=== PATIENT | female | born 1975 | race Native Hawaiian/Other Pacific Islander ===

== ENCOUNTER → 2016-06-11 | Outpatient (CLI) | payer BC | END | disposition home or self-care (01) | LOC: C.LABSPEC 17:36 | PROVIDERS: ATTEND Nurse Practitioner Family | DX: R35.0 Frequency of micturition (principal) ==

== ENCOUNTER → 2016-07-16 | Outpatient (CLI) | payer BC ==
[2016-07-20 11:57] LABS: CHLAMYDIA TRACH RNA*** NOT DETECTED (NOT DETECTED); GC (NEIS GONORRHOEAE)RNA** NOT DETECTED (NOT DETECTED)
== END | disposition home or self-care (01) ==
LOC: C.LABSPEC 16:29
PROVIDERS: ATTEND Obstetrics & Gynecology
DX: Z11.3 Encounter for screening for infections with a predominantly sexual mode of transmission (principal)

== ENCOUNTER → 2016-07-16 | Outpatient (CLI) | payer BC | END | disposition home or self-care (01) | LOC: C.PAPS 08:14 | PROVIDERS: ATTEND Obstetrics & Gynecology | DX: Z01.411 Encounter for gynecological examination (general) (routine) with abnormal findings (principal); R87.610 Atypical squamous cells of undetermined significance on cytologic smear of cervix (ASC-US) ==

== ENCOUNTER 2016-08-01 19:53 | Emergency (ER) | payer BC ==
[~2016-08-01] VITALS: Ht 167.6 cm; Wt 79.3 kg
[2016-08-01 19:55] VITALS: Ht 167.6 cm; Wt 79.3 kg
[2016-08-01] MEDS ORDERED: KETOROLAC TROMETHAMINE 30 MG/ML VIAL IV STA (20:07)
[2016-08-01] MEDS ORDERED: SODIUM CHLORIDE 0.9% 1000ML 1,000 ML IV STA (20:07)
[2016-08-01 20:35] LABS: BASO % 0.3 %; BASO ABS # 0.02 K/uL (0-0.2); COMPLETE YES; EOS % 0.4 %; HEMATOCRIT 38.5 % (37-47); LYMPH % 40.1 %; LYMPH ABS # 2.74 K/uL (1.2-3.4); MEAN CELL VOLUME 92.1 fL (80-100); MEAN CORPUSCULAR HEMOGLOBIN 30.9 pg (25-34); MEAN CORPUSCULAR HGB CONC 33.5 g/dl (32-36); NEUT % 53.2 %; PLATELET COUNT 193 K/uL (130-400); RED BLOOD COUNT 4.18 M/uL (4.2-5.4); WHITE BLOOD COUNT 6.83 K/uL (4.8-10.8)
[2016-08-01 20:50] LABS: BUN/CREATININE RATIO 23.9 (10-20); CALCIUM 9.1 mg/dl (8.5-10.1); CREATININE 0.69 mg/dl (0.60-1.20); POTASSIUM 3.6 mmol/L (3.5-5.1)
--- NOTE | 2016-08-01 20:50 | DIAGNOSTIC IMAGING REPORT ---
CT SCAN OF THE ABDOMEN AND PELVIS WITHOUT CONTRAST CLINICAL HISTORY: Generalized abdominal pain COMPARISON STUDY: No previous studies for comparison. TECHNIQUE: CT scan of the abdomen and pelvis was performed from the lung bases to the proximal femurs. Images are reviewed in the axial, sagittal, and coronal planes. IV contrast was not administered for this examination. CT DOSE: 485.05 mGy.cm FINDINGS: Lower chest: There is a mild pectus deformity. This results in borderline transverse enlargement of the heart. There are minimal dependent atelectatic changes. Liver: The unenhanced liver is normal in size, contour, and attenuation. There is no intrahepatic biliary ductal dilatation. Gallbladder: Unremarkable. Spleen: Normal in size and attenuation. Pancreas: Unremarkable. Adrenal glands: Unremarkable. Kidneys: There is a nonobstructing 2 mm lower pole left renal calculus. There is mild fullness of the left renal collecting system. No ureteral or bladder calculi are visualized. A left pelvic basin calcification is felt to represent a phlebolith.. Bowel: There are no transition zones indicate bowel obstruction. The appendix appears normal. There is no acute diverticulitis. Peritoneum: There is no free air. There is minimal free pelvic fluid likely physiologic. Vasculature: The abdominal aorta is normal in course and caliber. Adenopathy: None. Pelvic viscera: The bladder, and pelvic viscera are unremarkable. Skeletal structures: No destructive osseous lesions are seen. IMPRESSION: 1. No evidence of bowel obstruction. No evidence of free air 2. Normal appendix 3. Nonobstructing 2 mm lower pole left renal calculus 4. Minor fullness of the left renal collecting system but no ureteral calculi identified Electronically signed by: Tomy José M.D. 08/01/2016 8:49 PM Dictated Date/Time: 08/01/2016 8:43 PM
--- NOTE | 2016-08-01 21:06 | DIAGNOSTIC IMAGING REPORT ---
EXAMINATION: PELVIC ULTRASOUND (transabdominal only at the referring clinician's request) CLINICAL HISTORY: Pelvic pain, nausea, vomiting, diarrhea. COMPARISON STUDY: CT scan dated 08/01/2016 FINDINGS: The uterus measured 7.2 x 4.2 x 5.1 cm. There is irregularity of the lower uterus segment/cervix. Endovaginal scanning should be considered in follow-up.. The endometrial stripe measured 8 mm. The right ovary measured 26 x 17 x 20 mm. The left ovary measured 6 x 13 x 21 mm. There is no ultrasonographic evidence of ovarian torsion. It should be noted that ovarian torsion can be present with normal Doppler ultrasonographic findings. There was no evidence of pathologic free pelvic fluid. IMPRESSION: 1. Ultrasonographically normal ovaries 2. Irregularity of the lower uterine segment/cervix. A follow-up endovaginal study is recommended.. Electronically signed by: Tomy José M.D. 08/01/2016 9:04 PM Dictated Date/Time: 08/01/2016 9:01 PM
--- NOTE | 2016-08-01 21:27 | DIAGNOSTIC IMAGING REPORT ---
CHEST ONE VIEW PORTABLE CLINICAL HISTORY: Pain, radiating to the abdomen. COMPARISON STUDY: No previous studies for comparison. FINDINGS: The heart is at the upper limits of normal in size. There is no failure. There is no focal pulmonary consolidation. There are no pleural effusions.[ IMPRESSION: No active disease in the chest. Electronically signed by: Tomy José M.D. 08/01/2016 9:26 PM Dictated Date/Time: 08/01/2016 9:25 PM
[2016-08-01 21:39] LABS: PREG INTERNAL NEGATIVE QC NEG CLEAR BACKGROUND; PREG INTERNAL POSITIVE QC POS CONTROL LINE
[2016-08-01 21:40] LABS: URINE APPEARANCE CLEAR (CLEAR); URINE BILIRUBIN NEG (NEG); URINE COLOR YELLOW; URINE EPITHELIAL CELL AUTO 20-30 /lpf (0-5); URINE NITRITE NEG (NEG); URINE SPECIFIC GRAVITY 1.002 (1.000-1.030); UROBILINOGEN NEG (NEG); ZZUR CULT IF INDIC CLEAN CATCH NO
[2016-08-01 21:41] LABS: MANUAL MICROSCOPIC REQUIRED? NO; REVIEW REQ? NO
--- NOTE | 2016-08-01 21:54 | EMERGENCY ROOM VISIT NOTE ---
History Report prepared by Jasmin: Chuck Johnson Under the Supervision of: Dr. Chavo Durant D.O. First contact with patient: 20:01 Chief Complaint: ABDOMINAL PAIN Stated Complaint: BAD ABDOMINAL PAIN History of Present Illness The patient is a 41 year old female who presents to the Emergency Room with complaints of severe and worsening bilateral lower and left upper quadrant abdominal pain starting about 10 days ago. She describes it to be a pinching pain. She has worsening pain with eating and drinking. She denies nausea, vomiting, or any other complaints. She denies any chance of . She also denies any history of similar abdominal pain but reports the severity of her current pain is much worse than before. She has a history of and denies history of any other abdominal surgeries. She had an abnormal pap smear last week. She is scheduled to have a colonoscopy soon. Source of History: patient Onset: about 10 days ago Position: abdomen (bilateral and lower upper quadrant ) Symptom Intensity: severe Quality: other (pinching) Timing: worsening Modifying Factors (Worsening): eating, drinking Associated Symptoms: No nausea, No vomiting Review of Systems See HPI for pertinent positives & negatives. A total of 10 systems reviewed and were otherwise negative. Past Medical & Surgical Surgical Problems: (1) H/O: section Family History Patient reports no known family medical history. Social History Smoking Status: Never Smoker Marital Status: Housing Status: lives with family Current/Historical Medications No Active Prescriptions or Reported Meds Allergies Coded Allergies: No Known Allergies (Unverified , 08/01/16) Physical Exam Vital Signs Date Time Temp Pulse Resp B/P Pulse Ox O2 Delivery O2 Flow Rate FiO2 08/01/16 21:47 58 18 128/61 99 Room Air 08/01/16 19:55 37.2 59 18 132/60 99 Room Air Physical Exam CONSTITUTIONAL/VITAL SIGNS: Reviewed / noted above. GENERAL: Non-toxic in appearance. INTEGUMENTARY: Warm, dry, and [place]. HEAD: Normocephalic. EYES: without scleral icterus or trauma. ENT/OROPHARYNX: clear and moist. LYMPHADENOPATHY/NECK: Is supple without lymphadenopathy or meningismus. RESPIRATORY: Lungs clear and equal. CARDIOVASCULAR: Regular rate and rhythm. GI/ABDOMEN: Soft. Mild tenderness to palpation of the lower abdomen. No organomegaly or pulsatile mass. No rebound or guarding. Normal bowel sounds. EXTREMITIES: Warm and well perfused. BACK: No CVA tenderness. NEUROLOGICAL: Intact without focal deficits. PSYCHIATRIC: normal affect. MUSCULOSKELETAL: Normally developed with good muscle tone. Medical Decision & Procedures ER Provider Diagnostic Interpretation: X ray results and stated below per my interpretation and radiologist interpretation. CT and US results and stated below per my review and radiologist interpretation: CT SCAN OF THE ABDOMEN AND PELVIS WITHOUT CONTRAST CLINICAL HISTORY: Generalized abdominal pain COMPARISON STUDY: No previous studies for comparison. TECHNIQUE: CT scan of the abdomen and pelvis was performed from the lung bases to the proximal femurs. Images are reviewed in the axial, sagittal, and coronal planes. IV contrast was not administered for this examination. CT DOSE: 485.05 mGy.cm FINDINGS: Lower chest: There is a mild pectus deformity. This results in borderline transverse enlargement of the heart. There are minimal dependent atelectatic changes. Liver: The unenhanced liver is normal in size, contour, and attenuation. There is no intrahepatic biliary ductal dilatation. Gallbladder: Unremarkable. Spleen: Normal in size and attenuation. Pancreas: Unremarkable. Adrenal glands: Unremarkable. Kidneys: There is a nonobstructing 2 mm lower pole left renal calculus. There is mild fullness of the left renal collecting system. No ureteral or bladder calculi are visualized. A left pelvic basin calcification is felt to represent a phlebolith.. Bowel: There are no transition zones indicate bowel obstruction. The appendix appears normal. There is no acute diverticulitis. Peritoneum: There is no free air. There is minimal free pelvic fluid likely physiologic. Vasculature: The abdominal aorta is normal in course and caliber. Adenopathy: None. Pelvic viscera: The bladder, and pelvic viscera are unremarkable. Skeletal structures: No destructive osseous lesions are seen. IMPRESSION: 1. No evidence of bowel obstruction. No evidence of free air 2. Normal appendix 3. Nonobstructing 2 mm lower pole left renal calculus 4. Minor fullness of the left renal collecting system but no ureteral calculi identified Electronically signed by: Tomy José M.D. 08/01/2016 8:49 PM Dictated Date/Time: 08/01/2016 8:43 PM CHEST ONE VIEW PORTABLE CLINICAL HISTORY: Pain, radiating to the abdomen. COMPARISON STUDY: No previous studies for comparison. FINDINGS: The heart is at the upper limits of normal in size. There is no failure. There is no focal pulmonary consolidation. There are no pleural effusions.[ IMPRESSION: No active disease in the chest. Electronically signed by: Tomy José M.D. 08/01/2016 9:26 PM Dictated Date/Time: 08/01/2016 9:25 PM EXAMINATION: PELVIC ULTRASOUND (transabdominal only at the referring clinician's request) CLINICAL HISTORY: Pelvic pain, nausea, vomiting, diarrhea. COMPARISON STUDY: CT scan dated 08/01/2016 FINDINGS: The uterus measured 7.2 x 4.2 x 5.1 cm. There is irregularity of the lower uterus segment/cervix. Endovaginal scanning should be considered in follow-up.. The endometrial stripe measured 8 mm. The right ovary measured 26 x 17 x 20 mm. The left ovary measured 6 x 13 x 21 mm. There is no ultrasonographic evidence of ovarian torsion. It should be noted that ovarian torsion can be present with normal Doppler ultrasonographic findings. There was no evidence of pathologic free pelvic fluid. IMPRESSION: 1. Ultrasonographically normal ovaries 2. Irregularity of the lower uterine segment/cervix. A follow-up endovaginal study is recommended.. Electronically signed by: Tomy José M.D. 08/01/2016 9:04 PM Dictated Date/Time: 08/01/2016 9:01 PM Laboratory Results 08/01/16 20:20 Red Blood Count 4.18, Mean Corpuscular Volume 92.1, Mean Corpuscular Hemoglobin 30.9, Mean Corpuscular Hemoglobin Concent 33.5, Mean Platelet Volume 12.0, Neutrophils (%) (Auto) 53.2, Lymphocytes (%) (Auto) 40.1, Monocytes (%) (Auto) 6.0, Eosinophils (%) (Auto) 0.4, Basophils (%) (Auto) 0.3, Neutrophils # (Auto) 3.63, Lymphocytes # (Auto) 2.74, Monocytes # (Auto) 0.41, Eosinophils # (Auto) 0.03, Basophils # (Auto) 0.02 08/01/16 20:20 Test 08/01/16 20:20 White Blood Count 6.83 K/uL (4.8-10.8) Red Blood Count 4.18 M/uL (4.2-5.4) Hemoglobin 12.9 g/dL (12.0-16.0) Hematocrit 38.5 % (37-47) Mean Corpuscular Volume 92.1 fL (80-100) Mean Corpuscular Hemoglobin 30.9 pg (25-34) Mean Corpuscular Hemoglobin Concent 33.5 g/dl (32-36) Platelet Count 193 K/uL (130-400) Mean Platelet Volume 12.0 fL (7.4-10.4) Neutrophils (%) (Auto) 53.2 % Lymphocytes (%) (Auto) 40.1 % Monocytes (%) (Auto) 6.0 % Eosinophils (%) (Auto) 0.4 % Basophils (%) (Auto) 0.3 % Neutrophils # (Auto) 3.63 K/uL (1.4-6.5) Lymphocytes # (Auto) 2.74 K/uL (1.2-3.4) Monocytes # (Auto) 0.41 K/uL (0.11-0.59) Eosinophils # (Auto) 0.03 K/uL (0-0.5) Basophils # (Auto) 0.02 K/uL (0-0.2) RDW Standard Deviation 47.2 fL (36.4-46.3) RDW Coefficient of Variation 14.0 % (11.5-14.5) Immature Granulocyte % (Auto) 0.0 % Immature Granulocyte # (Auto) 0.00 K/uL (0.00-0.02) Urine Color YELLOW Urine Appearance CLEAR (CLEAR) Urine pH 7.0 (4.5-7.5) Urine Specific [place] 1.002 (1.000-1.030) Urine Protein NEG (NEG) Urine Glucose (UA) NEG (NEG) Urine Ketones NEG (NEG) Urine Occult Blood NEG (NEG) Urine Nitrite NEG (NEG) Urine Bilirubin NEG (NEG) Urine Urobilinogen NEG (NEG) Urine Leukocyte Esterase SMALL (NEG) Urine WBC (Auto) 1-5 /hpf (0-5) Urine RBC (Auto) 5-10 /hpf (0-4) Urine Hyaline Casts (Auto) 1-5 /lpf (0-5) Urine Epithelial Cells (Auto) 20-30 /lpf (0-5) Urine Bacteria (Auto) NEG (NEG) Urine Test NEG (NEG) Anion Gap 5.0 mmol/L (3-11) Est Creatinine Clear Calc Drug Dose 114.0 ml/min Estimated GFR () 125.3 Estimated GFR (Non- 108.1 BUN/Creatinine Ratio 23.9 (10-20) Calcium Level 9.1 mg/dl (8.5-10.1) Total Bilirubin 0.3 mg/dl (0.2-1) Direct Bilirubin 0.1 mg/dl (0-0.2) Aspartate Amino Transf (AST/SGOT) 20 U/L (15-37) Alanine Aminotransferase (ALT/SGPT) 26 U/L (12-78) Alkaline Phosphatase 42 U/L (45-117) Total Protein 7.4 gm/dl (6.4-8.2) Albumin 4.0 gm/dl (3.4-5.0) Lipase 387 U/L (73-393) Laboratory results as stated above per my review. Medications Administered Medications (Trade) Dose Ordered Sig/Yemi Route Start Time Stop Time Status Last Admin Dose Admin Sodium Chloride (Nss 1000ml) 1,000 ml @ 999 mls/hr Q1H1M STAT IV 08/01/16 20:07 08/01/16 21:07 DC 08/01/16 20:27 999 MLS/HR Ketorolac Tromethamine (Toradol Inj) 30 mg NOW STAT IV 08/01/16 20:07 08/01/16 20:10 DC 08/01/16 20:28 30 MG ED Course 2000: Previous medical records were reviewed. The patient was evaluated in room C07. A complete history and physical examination was performed. 2006: Toradol Inj 30 mg IV, Sodium Chloride 1000 ml @ 999 mls/hr IV 2155: On reevaluation, the patient is resting comfortably. I discussed the results and findings with the patient. She verbalized agreement of the treatment plan. She was discharged home. Medical Decision Differential considered: pancreatitis, hepatitis, or acute cholecystitis, AAA, UTI, pyelonephritis, kidney stones, appendicitis, diverticulitis, shingles, bowel obstruction mesenteric ischemia, intussusception,hernia, ovarian torsion, ruptured ovarian cyst,ectopic , . This is a 41-year-old female who presents to the ED with a chief complaint of lower abdominal pain as well as some left upper quadrant abdominal pain. The patient states that she has had the symptoms for the past 10 days. She denies any nausea, vomiting or diarrhea. She denies any abnormal vaginal discharge but has had some vaginal bleeding. The patient states that she has history of an abnormal Pap smear last week. She is scheduled for colposcopy. The patient' s exam was relatively benign. She had mild tenderness to the lower abdominal quadrants on exam. There is no CVA tenderness. Pelvic ultrasound revealed an irregular lower uterine segment/cervix. She had normal ovaries. Chest x-ray did not show acute disease. A CT scan of the abdomen did not show acute process. CBC, complete metabolic panel, lipase and urine did not show abnormality. test was negative. The patient was told the results of the test. She is felt stable for discharge and outpatient follow-up with her certified addiction counselor. Impression Primary Impression: Lower abdominal pain Additional Impression: Cervical dysplasia Scribe Attestation The scribe's documentation has been prepared under my direction and personally reviewed by me in its entirety. I confirm that the note above accurately reflects all work, treatment, procedures, and medical decision making performed by me. Departure Information Dispostion Home / Self-Care Prescriptions No Active Prescriptions or Reported Meds Referrals Moises Caruso MD (PCP) Forms Call Back Authorization, HOME CARE DOCUMENTATION FORM, IMPORTANT VISIT INFORMATION Patient Instructions My [facility] Additional Instructions Follow-up with your certified addiction counselor. Return for any concerns or worsening. Problem Qualifiers
[2016-08-01 22:35] VITALS: BP 122/66; PULSE 57; TEMP 37.2; O2SAT 99
== END 2016-08-01 22:36 | disposition home or self-care (01) ==
LOC: C.EDB 19:55 → C.EDC 22:36
DX: R10.30 Lower abdominal pain, unspecified (principal); N87.9 Dysplasia of cervix uteri, unspecified

== ENCOUNTER → 2016-08-06 | Outpatient (CLI) | payer BC | END | disposition home or self-care (01) | LOC: C.PATHSPEC 17:32 | PROVIDERS: ATTEND Obstetrics & Gynecology | DX: R87.610 Atypical squamous cells of undetermined significance on cytologic smear of cervix (ASC-US) (principal); R87.810 Cervical high risk human papillomavirus (HPV) DNA test positive; R87.612 Low grade squamous intraepithelial lesion on cytologic smear of cervix (LGSIL) ==